=== PATIENT | female | born 1995 | race Caucasian/White ===

== ENCOUNTER → 2023-01-01 16:19 | Outpatient (CLI) | payer MEDICAID, SELFPAY ==
[2023-01-01 14:37] LABS: Coronavirus 19, PCR Not Detected (NotDetected); Influenza A, PCR Not Detected (NotDetected); Influenza B, PCR Not Detected (NotDetected)
== END ==
PROVIDERS: PCP Internal Medicine; Visit Provider Internal Medicine
DX: R06.02 Shortness of breath (principal); R52 Pain, unspecified
CPT/HCPCS: 87636

== ENCOUNTER 2023-02-13 17:47 | Emergency (ER) | payer MEDICAID, SELFPAY ==
[2023-02-13 18:40] VITALS: BP 127/58; PULSE 80; RESP 20; TEMP 37.1; O2SAT 99; BMI 19.7
[2023-02-13 18:55] LABS: UTC Strep Screen (Rapid) Negative (Negative)
--- NOTE | 2023-02-13 19:19 | EXP.UTC ---
Discharge Plan Disposition Patient Disposition: Home, Self-Care Condition: Good Prescriptions Prescriptions: New fluticasone propionate [Flonase Allergy Relief] 50 mcg/actuation spray,suspension 1 - 2 spray intranasal DAILY Qty: 16 0RF Rx Instructions: administer into each nostril cefdinir 300 mg capsule 300 mg PO BID Qty: 20 0RF Referrals Follow up/Referrals: Jon Trivedi DO [Primary Care Provider] - See instructions Activity Restrictions/Add. Instructions Additional Instructions/Restrictions: *Monitor Temp, Over the counter Motrin or Tylenol as directed/as needed Tylenol every 4 hours and Motrin every 6 hours (as long as your family doctor has told you that you can take it) for fever or pain. and straight to ER if unable to lower temp less than 101.0 after medication given *Warm salt water gargles may help to soothe the throat *Throat Lozenges? *Warm fluids like tea with honey may help to soothe the throat? *Sleep elevated *Humidifier/Vaporizer Your throat swab was sent for culture. Those results are typically sent to your primary care. Be sure to follow up in 2-3 days with your family doctor/primary care physician if no improvement so they can review those result and treat if necessary. If you don?t have a primary care doctor, I recommend you get one but in the mean time, you will have to return to a walk in clinic Follow up IMMEDIATELY for new or worsening symptoms or no Noticeable improvement over the next 48-72 hours. 911 for difficulty breathing or swallowing Clinical Impressions Clinical Impression: Sinusitis Qualifiers: Sinusitis location: unspecified location Chronicity: unspecified Qualified Code(s): J32.9 - Chronic sinusitis, unspecified Instructions Patient Instructions: DI for Sinusitis, Sinusitis Discharge ED Provider: Marisela Garcia [facility] General Stated complaint: sore throat, ear ache Mode of Arrival: Ambulatory Source of Information: Patient Limitations: No Limitations Time Seen by Provider: 02/13/23 19:19 Description of Symptoms (Recalled from Triage Doc. by RN): PATIENT C/O SORE THROAT, CONGESTION, DRAINAGE AND LEFT EAR STOPPED UP SINCE FRIDAY HEENT Symptoms (Recalled from RN notes): Yes Resp Symptoms (Recalled from RN notes): No Skin Symptoms (Recalled from RN notes): No MS Symptoms (Recalled from RN notes): No Functional Status (Recalled from RN notes): WNL History of Present Illness Provider Complaint: Patient states that she is 6wks OB and has been sick for a week with sinus congestion, sore throat left ear feeling stopped up and drainage in her throat States that she tried to tough it out but today she was feeling worse so she came in to get checked Related Data Previous Rx's Medication Instructions Recorded cefdinir 300 mg capsule 300 mg PO BID #20 caps 02/13/23 fluticasone propionate 50 1 - 2 spray intranasal DAILY #16 02/13/23 mcg/actuation nasal grams spray,suspension (Flonase Allergy Relief) Allergies Allergy/AdvReac Type Severity Reaction Status Date / Time No Known Allergies Allergy Verified 01/08/23 14:57 Worker's Comp Is this a Worker's Comp case?: No [facility] Disclaimer: The information contained in this section may have been updated after the patient was seen, as this information can be updated by other users. Social History Smoking Status: Never smoker alcohol intake: never substance use type: denies use current occupational status: employed Travel in the last 8 weeks: None ROS Obtained: Yes All systems reviewed & no additional complaints except as documented and Yes Systems reviewed as appropriate & no additional complaints except as documented Constitutional Constitutional: Reports system reviewed and no additional complaints, except as documented, Reports as per HPI and Reports headache(s) ENT Ears, Nose,
[2023-02-13 19:25] VITALS: BP 127/58; PULSE 80; RESP 20; TEMP 37.1; O2SAT 99
== END 2023-02-13 19:34 | disposition home or self-care (01) ==
PROVIDERS: Emergency Provider Nurse Practitioner; PCP Internal Medicine
DX: O26.891 Other specified pregnancy related conditions, first trimester (principal); J01.90 Acute sinusitis, unspecified; R07.0 Pain in throat; H92.02 Otalgia, left ear; R09.81 Nasal congestion; R09.82 Postnasal drip; Z3A.01 Less than 8 weeks gestation of pregnancy
CPT/HCPCS: 87880; 99204; 99212; G0463